=== PATIENT | female | born 1950 | race American Indian/Alaskan Native ===

== ENCOUNTER 2017-09-07 10:34 | Emergency (ER) | payer MEDICARE ==
[2017-09-07] MEDS ORDERED: CATAPRES PO ONE (11:31)
[2017-09-07] MEDS ORDERED: COZAAR PO ONE (11:31)
--- NOTE | 2017-09-07 11:33 | Emergency Department Report ---
Blank Doc - Documentation Documentation: Patient is 67 years old female sent from her primary care physician office after she found to have a blood pressure of 245/100. Patient stated that she did not have her Losartan for the last 2 days. She denied any headache, chest pain, shortness of breath, abdominal pain, weakness, numbness, tingling sensation, bowel or bladder incontinence. Patient is given clonidine 0.2 mg, losartan 50 mg. The patient needed to be observed until the blood pressure come down.
--- NOTE | 2017-09-07 11:58 | Emergency Department Report ---
HPI - General Chief Complaint: Medical Clearance Time Seen by Provider: 09/07/17 11:16 - HPI HPI: Patient is a 67-year-old female with a history of high blood pressure on medication who presents to ED from her primary care physician's office for elevated blood pressure. Patient states she did not take her blood pressure medication today she states she takes losartan 100 mg once a day for blood pressure. Patient denies any headache, blurred vision, chest pain, shortness of breath, abdominal pain or any other problems today. ED Past Medical Hx - Past Medical History Hx Hypertension: Yes Hx Diabetes: Yes - Surgical History Past Surgical History?: No - Social History Smoking Status: Current Every Day Smoker Substance Use Type: None - Medications Home Medications: Home Medications Medication Instructions Recorded Confirmed Last Taken Type HYDROcodone/APAP 5-325 [[place] 1 each PO Q6HR PRN #10 tablet 01/01/16 Unknown Rx 5/325] cloNIDine [Catapres] 0.1 mg PO BID #60 tablet 01/01/16 Unknown Rx Losartan [Cozaar] 100 mg PO QDAY #40 tablet 09/07/17 Unknown Rx ED Review of Systems ROS: Stated complaint: HYPERTENSIVE Other details as noted in HPI Constitutional: denies: chills, fever Eyes: denies: eye pain, eye discharge, vision change ENT: denies: ear pain, throat pain Respiratory: denies: cough, shortness of breath, wheezing Cardiovascular: denies: chest pain, palpitations Endocrine: no symptoms reported Gastrointestinal: denies: abdominal pain, nausea, diarrhea Genitourinary: denies: urgency, dysuria, discharge Musculoskeletal: denies: back pain, joint swelling, arthralgia Skin: denies: rash, lesions Neurological: denies: headache, weakness, paresthesias Psychiatric: denies: anxiety, depression Hematological/Lymphatic: denies: easy bleeding, easy bruising Physical Exam - Physical Exam Vital Signs: Vital Signs 09/07/17 09/07/17 10:45 11:41 Temperature 98 F Pulse Rate 75 82 Respiratory 16 Rate Blood Pressure 249/100 250/100 O2 Sat by Pulse 100 Oximetry Physical Exam: GENERAL: Alert and oriented x3, no apparent distress, Normal Gait, atraumatic. HEAD: Head is normocephalic and a-traumatic. EYES: Extra ocular muscles are intact. Pupils are equal, round, and reactive to light and accommodation. NECK: Supple. Non edematous, No carotid bruits. No lymphadenopathy or thyromegaly. No C-spine tenderness LUNGS: Symetrical with respiration, No wheezing, no rales or crackles, CTAB. HEART: S1, S2 present, regular rate and rhythm without murmur, no rubs, no gallops. Non tender to palpation ABDOMEN: No organomegaly was noted,Positive bowel sounds, soft, and non- distended. . Nontender to palpation on all Quadrants, NO CVA tenderness. EXTREMITIES/MUSCULOSKELETAL: No cyanosis, clubbing, rash, lesions or edema. Full ROM bilaterally. NEUROLOGIC: The patient is cooperative with no focal neurologic deficits. SKIN: Warm and dry, No lesions, No ulceration or induration present. ED Course Vital Signs 09/07/17 09/07/17 10:45 11:41 Temperature 98 F Pulse Rate 75 82 Respiratory 16 Rate Blood Pressure 249/100 250/100 O2 Sat by Pulse 100 Oximetry ED Medical Decision Making - Lab Data Result diagrams: 09/07/17 11:40 09/07/17 11:40 Last Vital Signs Temp 98.8 F 09/07/17 12:13 Pulse 78 09/07/17 13:11 Resp 18 09/07/17 13:13 BP 167/87 09/07/17 13:11 Pulse Ox 100 09/07/17 13:13 - Medical Decision Making 67-year-old female presents with hypertension urgency. ED course: Clonidine was given in ED to reduce blood pressure CBC, BMP and urinalysis ordered to rule out hypertensive emergency. Patient is stable, sitting in ED comfortably Discussed with patient to take her blood pressure medications daily. Discussed the patient will follow up with the primary care physician and discuss management of blood pressure medication Patient had no symptomatic elevated blood pressure in ED Patient labs within normal limits. Blood pressure reduced prior to discharge. Discussed patient if any new onset of symptoms to return to ED Critical care attestation.: If time is entered above; I have spent that time in minutes in the direct care of this critically ill patient, excluding procedure time. ED Disposition Clinical Impression: Hypertensive urgency, Uncontrolled hypertension Disposition: DC-01 TO HOME OR SELFCARE Is pt being admited?: No Does the pt Need Aspirin: No Condition: Stable Instructions: Chronic Hypertension (ED), Hypertension (ED) Additional Instructions: Make sure to follow up with the primary care physician as discussed. Take all your medications as you've been prescribed. If you have any worsening symptoms or develop new symptoms please return to ED immediately. Prescriptions: Losartan [Cozaar] 100 mg PO QDAY #40 tablet Referrals: PRIMARY CARE, [Primary Care Provider] - 3-5 Days MARTINA MILTON MD [Referring] - 3-5 Days [facility] [Outside] - 3-5 Days [facility] [Outside] - 3-5 Days [facility] [Outside] - 3-5 Days Forms: Work/School Release Form(ED)
[2017-09-07 12:13] LABS: Basophils # (Auto) 0.1 K/mm3 (0.0-0.1); Basophils % (Auto) 1.2 % (0.0-1.8); Eosinophils # (Auto) 0.2 K/mm3 (0.0-0.4); Eosinophils % (Auto) 3.8 % (0.0-4.3); Hematocrit 36.7 % (30.3-42.9); Hemoglobin 12.7 gm/dl (10.1-14.3); Lymphocytes # (Auto) 1.5 K/mm3 (1.2-5.4); Lymphocytes % (Auto) 31.4 % (13.4-35.0); Mean Corpuscular HGB Conc 35 % (30-34); Mean Corpuscular Hemoglobin 32 pg (28-32); Mean Corpuscular Volume 92 fl (79-97); Monocytes # (Auto) 0.3 K/mm3 (0.0-0.8); Monocytes % (Auto) 6.9 % (0.0-7.3); Platelet Count 200 K/mm3 (140-440); Red Blood Count 3.99 M/mm3 (3.65-5.03); Red Cell Distribution Width 14.7 % (13.2-15.2)
[2017-09-07 12:19] LABS: Albumin 4.4 g/dL (3.9-5); Calcium 9.4 mg/dL (8.4-10.2)
[2017-09-07 12:31] LABS: Mucus,Urine FEW /HPF
[2017-09-07 12:37] LABS: Bilirubin,Urine NEG (Negative); Blood,Urine NEG (Negative); Color,Urine Straw (Yellow); Urobilinogen,Urine < 2.0 mg/dL (<2.0)
[2017-09-07 13:12] VITALS: BP 167/87
== END 2017-09-07 13:20 | disposition home or self-care (01) ==
LOC: ED 10:34
DX: I10 Essential (primary) hypertension (principal); I16.0 Hypertensive urgency; E11.9 Type 2 diabetes mellitus without complications; F17.200 Nicotine dependence, unspecified, uncomplicated
CPT/HCPCS: 36415; 80053; 81001; 85025; 93005; 93010; 99283

== ENCOUNTER 2021-09-14 12:54 | Inpatient (IN) | payer MEDICARE ==
[2021-09-14 14:51] LABS: Basophils % (Auto) 0.7 % (0.0-1.8); Eosinophils % (Auto) 0.9 % (0.0-4.3); Hematocrit 20.6 % (30.3-42.9); Hemoglobin 6.7 gm/dl (10.1-14.3); Lymphocytes # (Auto) 0.8 K/mm3 (1.2-5.4); Lymphocytes % (Auto) 18.1 % (13.4-35.0); Mean Corpuscular HGB Conc 33 % (30-34); Mean Corpuscular Volume 93 fl (79-97); Monocytes # (Auto) 0.2 K/mm3 (0.0-0.8); Monocytes % (Auto) 5.1 % (0.0-7.3); Platelet Count 255 K/mm3 (140-440); Red Blood Count 2.22 M/mm3 (3.65-5.03)
[2021-09-14 15:09] LABS: Alanine Aminotransferase 8 units/L (7-56); Albumin 3.4 g/dL (3.9-5); BUN/Creatinine Ratio 18; Blood Urea Nitrogen 57 mg/dL (7-17); Calcium 8.5 mg/dL (8.4-10.2); Hemolysis Index 0
[2021-09-14] MEDS ORDERED: SODIUM CHLORIDE 0.9% 1000 ML 1,000 ML IV ONE (15:12)
[2021-09-14] MEDS ORDERED: SODIUM POLYSTYRENE 15 GM/60 ML ORAL LIQD PR ONE (15:30)
[2021-09-14] MEDS ORDERED: SODIUM BICARB 8.4% 50 MEQ/50 ML SYRINGE IV ONE (15:30)
[2021-09-14] MEDS ORDERED: DEXTROSE 50% IN WATER (25GM) 50 ML SYRINGE IV ONE (15:30)
[2021-09-14] MEDS ORDERED: FUROSEMIDE 40 MG/4 ML INJ IV ONE (15:30)
[2021-09-14] MEDS ORDERED: INSULIN REGULAR, HUMAN 100 UNITS/1 ML IV ONE (15:31)
[2021-09-14] MEDS ORDERED: ALBUTEROL 2.5 MG/3 ML NEBU IH ONE (15:31)
--- NOTE | 2021-09-14 15:43 | Emergency Department Report ---
ED Dizziness HPI - General Chief Complaint: Dizziness Stated Complaint: DIZZY Time Seen by Provider: 09/14/21 15:20 Source: patient Mode of arrival: Ambulatory Limitations: No Limitations - History of Present Illness Initial Comments: 71-year-old female the past medical history of hypertension, diabetes, and renal sufficiency presents to the hospital complaining of lightheadedness since last night. Symptoms worsened this morning and patient felt too weak to walk unassisted. Mild shortness of breath on exertion reported. Patient denies any pain. She denies nausea, vomiting, fever, melena hematochezia, or hematemesis. Decreased appetite reported. Patient's PMD Dr. Corona and she has a rn long term care on [facility] but cannot recall the name at this time - Related Data Previous Rx's Medication Instructions Recorded Last Taken Type HYDROcodone/APAP 5-325 [[place] 1 each PO Q6HR PRN #10 tablet 01/01/16 Unknown Rx 5/325] cloNIDine [Catapres] 0.1 mg PO BID #60 tablet 01/01/16 Unknown Rx Losartan [Cozaar] 100 mg PO QDAY #40 tablet 09/07/17 Unknown Rx Allergies Allergy/AdvReac Type Severity Reaction Status Date / Time No Known Allergies Allergy Unverified 05/23/13 14:39 ED Review of Systems ROS: Stated complaint: DIZZY Other details as noted in HPI Comment: All other systems reviewed and negative ED Past Medical Hx - Past Medical History Hx Hypertension: Yes Hx Diabetes: Yes - Social History Smoking Status: Current Every Day Smoker Substance Use Type: None - Medications Home Medications: Home Medications Medication Instructions Recorded Confirmed Last Taken Type HYDROcodone/APAP 5-325 [[place] 1 each PO Q6HR PRN #10 tablet 01/01/16 Unknown Rx 5/325] cloNIDine [Catapres] 0.1 mg PO BID #60 tablet 01/01/16 Unknown Rx Losartan [Cozaar] 100 mg PO QDAY #40 tablet 09/07/17 Unknown Rx ED Physical Exam - General Limitations: No Limitations - Other Other exam information: General: No acute distress Head: Atraumatic Eyes: normal appearance ENT: Moist mucous membranes Neck: Normal appearance, no midline tenderness Chest: Clear to auscultation bilaterally CV: Regular rate and rhythm Abdomen: Soft, normal bowel sounds, nontender, nondistended, no rebound or guarding Rectal: Brown stool no melena or hematochezia Back: Normal inspection Extremity: Normal inspection, full range of motion Neuro: Alert O x 3, no facial asymmetry, speech clear, no gross motor sensory deficit Psych: Appropriate behavior Skin: No rash ED Course Vital Signs 09/14/21 09/14/21 09/14/21 13:07 16:51 16:55 Temperature 98.9 F Pulse Rate 99 H Pulse Rate [ 120 H Bilateral Throughout] Respiratory 18 Rate Respiratory 18 Rate [Bilateral Throughout] Blood Pressure Blood Pressure 139/60 [Left] O2 Sat by Pulse 95 94 Oximetry 09/14/21 09/14/21 09/14/21 19:31 19:46 20:46 Temperature 98.9 F 97.9 F 98.1 F Pulse Rate 118 H 116 H 112 H Pulse Rate [ Bilateral Throughout] Respiratory 22 22 22 Rate Respiratory Rate [Bilateral Throughout] Blood Pressure 148/78 159/77 153/82 Blood Pressure [Left] O2 Sat by Pulse 100 99 100 Oximetry - Consultations Consultation #1: 09/14/21 15:[address] Serrano her rn long term care, He is familiar with the patient states baseline cr 2 ED Medical Decision Making - Lab Data Result diagrams: 09/14/21 14:20 09/14/21 14:20 Lab Results 09/14/21 09/14/21 Range/Units 14:20 14:20 WBC 4.3 L (4.5-11.0) K/mm3 RBC 2.22 L (3.65-5.03) M/mm3 Hgb 6.7 L (10.1-14.3) gm/dl Hct 20.6 L (30.3-42.9) % MCV 93 (79-97) fl MCH 30 (28-32) pg MCHC 33 (30-34) % RDW 14.0 (13.2-15.2) % Plt Count 255 (140-440) K/mm3 Lymph % (Auto) 18.1 (13.4-35.0) % [place] % (Auto) 5.1 (0.0-7.3) % Eos % (Auto) 0.9 (0.0-4.3) % Baso % (Auto) 0.7 (0.0-1.8) % Lymph # (Auto) 0.8 L (1.2-5.4) K/mm3 [place] # (Auto) 0.2 (0.0-0.8) K/mm3 Eos # (Auto) 0.0 (0.0-0.4) K/mm3 Baso # (Auto) 0.0 (0.0-0.1) K/mm3 Seg Neutrophils % 75.2 H (40.0-70.0) % Seg Neutrophils # 3.3 (1.8-7.7) K/mm3 Sodium 132 L (137-145) mmol/L Potassium 6.1 H* (3.6-5.0) mmol/L Chloride 97.6 L (98-107) mmol/L Carbon Dioxide 20 L (22-30) mmol/L Anion Gap 21 mmol/L BUN 57 H (7-17) mg/dL Creatinine 3.2 H (0.6-1.2) mg/dL Estimated GFR 17 ml/min BUN/Creatinine Ratio 18 % Glucose 125 H (65-100) mg/dL Calcium 8.5 (8.4-10.2) mg/dL Total Bilirubin 0.30 (0.1-1.2) mg/dL AST 11 (5-40) units/L ALT 8 (7-56) units/L Alkaline Phosphatase 73 (35-129) units/L Troponin T < 0.010 (0.00-0.029) ng/mL Total Protein 8.2 (6.3-8.2) g/dL Albumin 3.4 L (3.9-5) g/dL Albumin/Globulin Ratio 0.7 % - EKG Data -: EKG Interpreted by Ut EKG shows normal: sinus rhythm, ST-T waves (no stemi) Rate: normal (97) - Radiology Data Radiology results: report reviewed CHEST 1 VIEW 09/14/2021 3:39 PM INDICATION / CLINICAL INFORMATION: sob, anemia, renal insufficiency. COMPARISON: 05/24/2013 FINDINGS: SUPPORT DEVICES: None. HEART / MEDIASTINUM: No significant abnormality. LUNGS / PLEURA: Bilateral mild interstitial opacities. No focal airspace disea se. No pneumothorax. ADDITIONAL FINDINGS: No significant additional findings. IMPRESSION: 1. Bilateral mild interstitial opacities favoring mild interstitial pulmonary edema versus small airways disease. - Medical Decision Making 71-year-old female presents to the hospital complaining of generalized weakness and lightheadedness. ED work-up reveals symptomatic anemia, acute on chronic renal sufficiency, and hyperkalemia. Case discussed with her rn long term care who reports a baseline creatinine of 2 which has worsened today. Today labs reveal stage IV kidney disease as opposed to previous history of stage IIIb kidney disease. Patient provided medications for hyperkalemia and 1 unit of PRBCs ordered. Hospitalist Dr. Fofana to place admission order Chest x-ray shows CHF. Patient initially received IV fluids as ordered by initial nurse practitioner. Patient has received Lasix. I informed nurse to inform admitting physician - Differential Diagnosis Anemia, dehydration, arrhythmia Critical Care Time: No Critical care attestation.: If time is entered above; I have spent that time in minutes in the direct care of this critically ill patient, excluding procedure time. ED Disposition Clinical Impression: Hyperkalemia, Weakness, [id number] renal failure, Symptomatic anemia, Pulmonary edema Disposition: ADMITTED INPATIENT Is pt being admited?: Yes Condition: Stable Time of Disposition: 15:52
[2021-09-14] MEDS ORDERED: SODIUM CHLORIDE 0.9% 500 ML 500 ML IV ONE ×2 (15:45→15:57)
--- NOTE | 2021-09-14 15:53 | History and Physical Report ---
History of Present Illness Chief complaint: I feel weak, I get dizzy and I passed out History of present illness: 71 YO Female with Vascular Dementia, Cerebral Atherosclerosis, HTN, DM, CKD, Nicotine Dependence presents to ED for evaluation. Patient reports "I feel weak, I get dizzy, and then I passed out". Patient states that she experienced generalized weakness over the past 1 week with persistent symptoms over the same timeframe. Patient also states that she experienced a sudden onset of dizziness while ambulating in her home last night and felt unable to walk and sat down and subsequently passed out. Patient awoke from sleep this a.m. with persistent weakness and dizziness. Patient transported to [facility] via private vehicle for further care and evaluation of the aforementioned symptoms. The patient was seen and evaluated in the emergency department. All lab and imaging studies reviewed. Patient found to have symptomatic anemia resulting in generalized weakness and loss of consciousness, BROCK with ATN, metabolic acidosis. Patient admitted to medical floor due to increased risk of worsening symptoms. Nephrology team consulted in ED. Patient denies fever, chills, chest pain, palpitation, productive cough, skin rash, recent contact, ingestion of food/water from new or different sources, bright red blood per rectum, melena, hematemesis, or known exposure to COVID-19. No prior admission for review. All medication listed at time of admission labs reconciled. Advanced care planning conducted in ED. Past History Past Medical History: diabetes, hypertension, renal failure, other (See HPI) Past Surgical History: No surgical history, Other (Reviewed) Social history: smoking Family history: diabetes, hypertension Medications and Allergies Allergies Allergy/AdvReac Type Severity Reaction Status Date / Time No Known Allergies Allergy Unverified 05/23/13 14:39 Home Medications Medication Instructions Recorded Confirmed Last Taken Type HYDROcodone/APAP 5-325 [[place] 1 each PO Q6HR PRN #10 tablet 01/01/16 Unknown Rx 5/325] cloNIDine [Catapres] 0.1 mg PO BID #60 tablet 01/01/16 Unknown Rx Losartan [Cozaar] 100 mg PO QDAY #40 tablet 09/07/17 Unknown Rx Active Meds: Active Medications Sodium Chloride (Nacl 0.9% 1000 Ml) 1,000 mls @ 999 mls/hr IV BOLUS ONE Stop: 09/14/21 16:12 Calcium Gluconate 1,000 mg/ (Sodium Chloride) 110 mls @ 660 mls/hr IV ONCE ONE Stop: 09/14/21 16:39 Review of Systems Constitutional: fatigue, weakness, no weight loss, no weight gain, no fever, no chills Ears, nose, mouth and throat: no ear pain, no tinnitis, no nose pain Breasts: no change in shape, no swelling, no mass Cardiovascular: no chest pain, no rapid/irregular heart beat, no edema, no syncope Respiratory: no cough, no cough with sputum, no hemoptysis, no shortness of breath Gastrointestinal: no abdominal pain, no diarrhea, no constipation, no change in bowel habits, no coffee ground emesis Genitourinary Female: no pelvic pain, no flank pain, no dysuria, no urinary frequency, no urgency Rectal: no pain, no incontinence, no bleeding Musculoskeletal: no neck stiffness, no shooting arm pain, no arm n umbness/tingling Integumentary: no rash, no pruritis, no redness, no sores, no wounds, no jaundice, no boils Neurological: no transient paralysis, no paralysis, no parathesias, no numbness, no tingling, no seizures, no tremors Psychiatric: no anxiety, no memory loss, no sleep disturbances, no hypersomnia, no change in appetite, no suicidal ideation Endocrine: no cold intolerance, no heat intolerance, no polydipsia, no polyuria, no excessive sweating, no flushing Hematologic/Lymphatic: no easy bruising, no lymphedema Allergic/Immunologic: no allergic rhinitis, no wheezing, no anaphylaxis, no angioedema Exam - Constitutional Vitals: Temp Pulse Resp BP Pulse Ox 98.9 F 99 H 18 139/60 95 09/14/21 13:07 09/14/21 13:07 09/14/21 13:07 09/14/21 13:07 09/14/21 13:07 General appearance: Present: mild distress - EENT Eyes: Present: PERRL (Conjunctival pallor) ENT: hearing intact, clear oral mucosa - Neck Neck: Present: supple, normal ROM - Respiratory Respiratory effort: normal Respiratory: bilateral: CTA - Cardiovascular Heart Sounds: Present: S1 & S2. Absent: rub, click - Extremities Extremities: pulses symmetrical, No edema Peripheral Pulses: within normal limits - Abdominal General gastrointestinal: Present: soft, non-tender, non-distended, normal bowel sounds Female genitourinary: Present: normal - Integumentary Integumentary: Present: dry, clammy, decreased turgor - Musculoskeletal Musculoskeletal: generalized weakness - Psychiatric Psychiatric: appropriate mood/affect, intact judgment & insight - Neurologic Neurologic: CNII-XII intact, no focal deficits, moves all extremities, no gait normal HEART Score - HEART Score Troponin: Troponin T < 0.010 ng/mL (0.00-0.029) 09/14/21 14:20 Results - Labs CBC & Chem 7: 09/14/21 14:20 09/14/21 14:20 Labs: Abnormal lab results 09/14/21 09/14/21 Range/Units 14:20 14:20 WBC 4.3 L (4.5-11.0) K/mm3 RBC 2.22 L (3.65-5.03) M/mm3 Hgb 6.7 L (10.1-14.3) gm/dl Hct 20.6 L (30.3-42.9) % Lymph # (Auto) 0.8 L (1.2-5.4) K/mm3 Seg Neutrophils % 75.2 H (40.0-70.0) % Sodium 132 L (137-145) mmol/L Potassium 6.1 H* (3.6-5.0) mmol/L Chloride 97.6 L (98-107) mmol/L Carbon Dioxide 20 L (22-30) mmol/L BUN 57 H (7-17) mg/dL Creatinine 3.2 H (0.6-1.2) mg/dL Glucose 125 H (65-100) mg/dL Albumin 3.4 L (3.9-5) g/dL Assessment and Plan - Patient Problems (1) Symptomatic anemia Current Visit: No Status: Acute Plan to address problem: Packed red blood cell transfusion, CBC, repeat CBC in a.m., Lasix 20 mg IV after transfusion of first unit of packed red blood cells, Tylenol, (2) Acute kidney injury (BROCK) with acute tubular necrosis (ATN) Current Visit: Yes Status: Acute Plan to address problem: Nephrology team consulted in ED, monitor fluid balance, strict I's/O, daily weight, BMP, repeat BMP in a.m. avoid nephrotoxic agents. (3) Metabolic acidosis Current Visit: Yes Status: Acute Plan to address problem: BMP, IV fluid resuscitation therapy as clinically indicated, repeat BMP in a.m. (4) Vascular dementia Current Visit: Yes Status: Acute Qualifiers: Dementia behavioral disturbance: without behavioral disturbance Qualified Code(s): F01.50 - Vascular dementia without behavioral disturbance Plan to address problem: Verbal prompting, verbal redirection, benzodiazepine therapy as clinically indicated. (5) Cerebral atherosclerosis Current Visit: Yes Status: Acute Plan to address problem: Risk factor reduction therapy, antiplatelet therapy as clinically indicated. (6) Hypertension Current Visit: Yes Status: Acute Qualifiers: Hypertension type: primary hypertension Qualified Code(s): I10 - Essential (primary) hypertension Plan to address problem: Monitor blood pressure every shift, continue medical management. (7) Diabetes Current Visit: Yes Status: Acute Plan to address problem: Consistent carbohydrate diet, Accu-Chek, hypoglycemia protocol, insulin protocol. (8) Nicotine dependence Current Visit: Yes Status: Acute Plan to address problem: Smoking cessation counseling, supportive care, behavior change counseling, +15 minutes. (9) DVT prophylaxis Current Visit: Yes Status: Acute Plan to address problem: SCD to bilateral lower extremities while in bed (10) Advance care planning Current Visit: Yes Status: Acute (11) Preventative health care Current Visit: Yes Status: Acute Plan to address problem: Patient counseled regarding risk factor reduction, medication compliance as well as smoking cessation. +15 minutes.
[2021-09-14] MEDS ORDERED: ALBUTEROL 2.5 MG/3 ML NEBU IH PRN (15:54)
[2021-09-14] MEDS ORDERED: oxyCODONE /ACETAMINOPHEN 5-325MG TAB PO PRN (15:54)
[2021-09-14] MEDS ORDERED: ONDANSETRON 4 MG/2 ML INJ IV PRN (15:54)
[2021-09-14] MEDS ORDERED: HYDROmorphone 1 MG/1 ML INJ IV PRN (15:54)
[2021-09-14] MEDS ORDERED: ACETAMINOPHEN 325 MG TAB PO PRN (15:54)
--- NOTE | 2021-09-14 15:57 | XRay Report ---
CHEST 1 VIEW 09/14/2021 3:39 PM INDICATION / CLINICAL INFORMATION: sob, anemia, renal insufficiency. COMPARISON: 05/24/2013 FINDINGS: SUPPORT DEVICES: None. HEART / MEDIASTINUM: No significant abnormality. LUNGS / PLEURA: Bilateral mild interstitial opacities. No focal airspace disease. No pneumothorax. ADDITIONAL FINDINGS: No significant additional findings. IMPRESSION: 1. Bilateral mild interstitial opacities favoring mild interstitial pulmonary edema versus small airw ays disease. Signer Name: Jose L Brothers MD Signed: 09/14/2021 3:53 PM Workstation Name: [id number]
[2021-09-14] MEDS ORDERED: SODIUM CHLORIDE 0.45% 1000 ML 1,000 ML IV SCH (16:00)
[2021-09-14] MEDS ORDERED: CALC GLUCONATE 1GM/NS 100 ML 1 GM/100 ML BAG IV ONE (16:30)
[2021-09-14] MEDS ORDERED: CALCIUM GLUCONATE 1,000 MG in SODIUM CHLORIDE 0.9% 100 ML IV ONE (16:30)
[2021-09-14 17:54] LABS: INR 1.21 (0.87-1.13)
[2021-09-14 17:55] LABS: Partial Thromboplastin Time 53.6 Sec. (24.2-36.6)
[2021-09-14] MEDS ORDERED: SODIUM CHLORIDE 0.9% 500 ML 500 ML ONE (22:40)
--- NOTE | 2021-09-15 10:05 | Consultation ---
History of Present Illness - Reason for Consult Consult date: 09/15/21 acute renal failure (71yr F admitted c/o Generalized weakness & failure to thrive. W/u on admission revealed HyperK, elevated BUN/Cr & Anemia.), hyper kalemia Past History Past Medical History: diabetes, hypertension, renal failure (Pt denies h/o prior renal problems but notes indicate pt has CKD with baseline Creatinine 2 & f/u by Mohs Surgeon, Dr. Serrano), other Past Surgical History: No surgical history, Other (Reviewed) Social history: smoking Family history: diabetes, hypertension Medications and Allergies Allergies Allergy/AdvReac Type Severity Reaction Status Date / Time No Known Allergies Allergy Unverified 05/23/13 14:39 Home Medications Medication Instructions Recorded Confirmed Last Taken Type Aspirin [Adult Aspirin] 81 mg PO DAILY 09/15/21 09/15/21 Unknown History Ezetimibe [Zetia] 10 mg PO DAILY 09/15/21 09/15/21 Unknown History Ferrous Sulfate [Iron 325 MG] 325 mg PO BID 09/15/21 09/15/21 Unknown History Gabapentin 100 mg PO BID PRN 09/15/21 09/15/21 Unknown History Metoprolol SUCCINATE ER TAB 100 mg PO DAILY 09/15/21 09/15/21 Unknown History Mirtazapine 7.5 mg PO QHS 09/15/21 09/15/21 Unknown History NIFEdipine [Nifedipine] 60 mg PO BID 09/15/21 09/15/21 Unknown History hydrALAZINE [Apresoline TAB] 100 mg PO TID 09/15/21 09/15/21 Unknown History lisinopriL [Lisinopril] 10 mg PO DAILY 09/15/21 09/15/21 Unknown History Active Meds: Active Medications Acetaminophen (Acetaminophen 325 Mg Tab) 650 mg PO Q4H PRN PRN Reason: Pain MILD(1-3)/Fever >100.5/HOLGUIN Albuterol (Albuterol 2.5 Mg/3 Ml Nebu) 2.5 mg IH Q4HRT PRN PRN Reason: Shortness Of Breath Hydromorphone HCl (Hydromorphone 1 Mg/1 Ml Inj) 0.5 mg IV Q13H PRN PRN Reason: Pain , Severe (7-10) Sodium Chloride (Nacl 0.45% 1000 Ml) 1,000 mls @ 42 mls/hr IV DIRECT [facility] Ondansetron HCl (Ondansetron 4 Mg/2 Ml Inj) 4 mg IV Q8H PRN PRN Reason: Nausea And Vomiting Oxycodone/Acetaminophen (Oxycodone /Acetaminophen 5-325mg Tab) 1 tab PO Q16H PRN PRN Reason: Pain, Moderate (4-6) Sodium Chloride (Sodium Chloride 0.9% 10 Ml Flush Syringe) 10 ml IV BID [facility] Last Admin: 09/15/21 09:40 Dose: Not Given Sodium Chloride (Sodium Chloride 0.9% 10 Ml Flush Syringe) 10 ml IV PRN PRN PRN Reason: LINE FLUSH Review of Systems Constitutional: fatigue, weakness, no fever, no chills Cardiovascular: lightheadedness, no chest pain, no orthopnea, no palpitations, no leg edema Respiratory: no cough, no shortness of breath, no congestion Gastrointestinal: no abdominal pain, no nausea, no vomiting, no diarrhea Musculoskeletal: no neck stiffness Integumentary: no rash Exam - Vital Signs Vital signs: Vital Signs Temp Pulse Resp BP Pulse Ox 98.9 F 99 H 18 139/60 95 09/14/21 13:07 09/14/21 13:07 09/14/21 13:07 09/14/21 13:07 09/14/21 13:07 - General Appearance General appearance: other (Awake & verbally responsive but weak) EENT: PERRL Neck: Present: neck supple. Absent: JVD/HJR Respiratory: Other (Good air entry) Heart: regular, S1S2, other (No edema) Gastrointestinal: Present: normal, other (Soft). Absent: tenderness Integumentary: no rash Neurologic: other (Moves all limbs) Results - Lab Results 09/14/21 14:20 09/14/21 14:20 Most recent lab results Calcium 8.5 mg/dL (8.4-10.2) 09/14/21 14:20 Assessment and Plan BROCK - Likely prerenal azotemia 2/2 Dehydration & possibly meds (outpt meds unknown at this time) ?Acute on CKD - Notes indicate baseline Cr 2. CKD currently Stage4 with eGFR 17 Electrolyte Abnormality - HyperK, HypoNa, mild Acidosis Anemia - ?Of chronic renal dz but r/o Blood loss H/o HTN/DM -On meds Plan: Spot Urine - UA/Micro, FENA, UUN, Prot/Cr ratio Renal u/s - Pending. Review when done Agree with cautious IVF with NS, avoid further diuretics. Repeat CXR 2views in am to confirm no Pulm Congestion Kayexalate & f/u labs Anemia w/u including Stool guaiacs, PRBC transfusion & f/u H/H Review meds & adjust as necessary, avoiding nephrotoxic meds Thanks very much, will f/u with you
[2021-09-15 10:36] LABS: Basophils % (Auto) 0.6 % (0.0-1.8); Eosinophils % (Auto) 0.4 % (0.0-4.3); Hematocrit 29.2 % (30.3-42.9); Hemoglobin 9.9 gm/dl (10.1-14.3); Lymphocytes # (Auto) 0.7 K/mm3 (1.2-5.4); Lymphocytes % (Auto) 11.4 % (13.4-35.0); Mean Corpuscular HGB Conc 34 % (30-34); Mean Corpuscular Volume 88 fl (79-97); Monocytes # (Auto) 0.3 K/mm3 (0.0-0.8); Monocytes % (Auto) 4.6 % (0.0-7.3); Platelet Count 214 K/mm3 (140-440); Red Blood Count 3.32 M/mm3 (3.65-5.03); Red Cell Distribution Width 15.2 % (13.2-15.2)
[2021-09-15 10:37] LABS: Hemoglobin 9.8 gm/dl (10.1-14.3)
[2021-09-15] MEDS ORDERED: SODIUM POLYSTYRENE 15 GM/60 ML ORAL LIQD PO SCH (11:00)
--- NOTE | 2021-09-15 11:13 | Ultrasound Report ---
Renal ultrasound INDICATION: Acute renal failure FINDINGS: Both kidneys measure 9 cm in length and are echogenic. There is mild thinning of both renal cortices measuring about 9 mm in thickness. The urinary bladder is fluid distended. Focal calculus i dentified within the left mid kidney IMPRESSION: No hydronephrosis. Medical renal disease. Signer Name: Yfn Baez MD Signed: 09/15/2021 11:09 AM Workstation Name: [employer]
--- NOTE | 2021-09-15 11:57 | Progress Note ---
Assessment and Plan Assessment and plan: 71 YO Female with Vascular Dementia, Cerebral Atherosclerosis, HTN, DM, CKD, Nicotine Dependence presents to ED for evaluation of generalized weakness over the past 1 week with persistent symptoms over the same timeframe. Patient also states that she experienced a sudden onset of dizziness while ambulating in her home the night [employer]ELOP[employer] and felt unable to walk and sat down and subsequently passed out. Patient now report persistent weakness and dizziness. Patient transported to [facility] via private vehicle for further care and evaluation. All lab and imaging studies reviewed. Patient found to have symptomatic anemia resulting in generalized weakness and loss of consciousness, BROCK with ATN, metabolic a cidosis. Patient admitted to medical floor due to increased risk of worsening symptoms. Nephrology team consulted in ED. Symptomatic anemia Acute kidney injury secondary to vasomotor nephropathy Vascular dementia Cerebral atherosclerosis Hypertension Diabetes mellitus type 2 Tobacco abuse 09/15/2021. Patient with a baseline creatinine of 1.2 in August 2017. Patient's hemoglobin has improved to 9.8 after 2 units of PRBCs. Continue to monitor H&H. No evidence of active bleeding, no hematochezia or hematemesis. Follow-up Hemoccult of stool. Follow-up iron studies. Follow-up spot urine, urinalysis and renal ultrasound. History Interval history: No new issues overnight Hospitalist Physical - Constitutional Vitals: Temp Pulse Resp BP Pulse Ox 98.9 F 111 H 20 167/86 99 09/15/21 09:05 09/15/21 09:05 09/15/21 09:05 09/15/21 06:00 09/15/21 09:05 General appearance: Present: mild distress - EENT Eyes: Present: PERRL, EOM intact ENT: hearing intact, clear oral mucosa, dentition normal - Neck Neck: Present: supple, normal ROM - Respiratory Respiratory effort: normal Respiratory: bilateral: CTA - Cardiovascular Rhythm: regular Heart Sounds: Present: S1 & S2. Absent: gallop, rub - Extremities Extremities: no ischemia, No edema, Full ROM - Abdominal General gastrointestinal: soft, non-tender, non-distended, normal bowel sounds - Integumentary Integumentary: Present: clear, warm, dry - Neurologic Neurologic: CNII-XII intact, moves all extremities HEART Score - HEART Score Troponin: Troponin T < 0.010 ng/mL (0.00-0.029) 09/14/21 14:20 Results - Labs CBC & Chem 7: 09/15/21 10:07 09/14/21 14:20 Labs: Laboratory Last Values WBC 6.5 K/mm3 (4.5-11.0) 09/15/21 10:07 RBC 3.32 M/mm3 (3.65-5.03) L 09/15/21 10:07 Hgb 9.8 gm/dl (10.1-14.3) L 09/15/21 10:07 Hgb 9.9 gm/dl (10.1-14.3) L D 09/15/21 10:07 Hct 28.0 % (30.3-42.9) L 09/15/21 10:07 Hct 29.2 % (30.3-42.9) L D 09/15/21 10:07 MCV 88 fl (79-97) 09/15/21 10:07 MCH 30 pg (28-32) 09/15/21 10:07 MCHC 34 % (30-34) 09/15/21 10:07 RDW 15.2 % (13.2-15.2) 09/15/21 10:07 Plt Count 214 K/mm3 (140-440) 09/15/21 10:07 Lymph % (Auto) 11.4 % (13.4-35.0) L 09/15/21 10:07 [place] % (Auto) 4.6 % (0.0-7.3) 09/15/21 10:07 Eos % (Auto) 0.4 % (0.0-4.3) 09/15/21 10:07 Baso % (Auto) 0.6 % (0.0-1.8) 09/15/21 10:07 Lymph # (Auto) 0.7 K/mm3 (1.2-5.4) L 09/15/21 10:07 [place] # (Auto) 0.3 K/mm3 (0.0-0.8) 09/15/21 10:07 Eos # (Auto) 0.0 K/mm3 (0.0-0.4) 09/15/21 10:07 Baso # (Auto) 0.0 K/mm3 (0.0-0.1) 09/15/21 10:07 Seg Neutrophils % 83.0 % (40.0-70.0) H 09/15/21 10:07 Seg Neutrophils # 5.4 K/mm3 (1.8-7.7) 09/15/21 10:07 PT 16.7 Sec. (12.2-14.9) H 09/14/21 15:23 INR 1.21 (0.87-1.13) H 09/14/21 15:23 APTT 53.6 Sec. (24.2-36.6) H 09/14/21 15:23 Sodium 132 mmol/L (137-145) L 09/14/21 14:20 Potassium 6.1 mmol/L (3.6-5.0) H* 09/14/21 14:20 Chloride 97.6 mmol/L (98-107) L 09/14/21 14:20 Carbon Dioxide 20 mmol/L (22-30) L 09/14/21 14:20 Anion Gap 21 mmol/L 09/14/21 14:20 BUN 57 mg/dL (7-17) H 09/14/21 14:20 Creatinine 3.2 mg/dL (0.6-1.2) H 09/14/21 14:20 Estimated GFR 17 ml/min 09/14/21 14:20 BUN/Creatinine Ratio 18 % 09/14/21 14:20 Glucose 125 mg/dL (65-100) H 09/14/21 14:20 POC Glucose 105 mg/dL (70-105) 09/14/21 15:51 Calcium 8.5 mg/dL (8.4-10.2) 09/14/21 14:20 Total Bilirubin 0.30 mg/dL (0.1-1.2) 09/14/21 14:20 AST 11 units/L (5-40) 09/14/21 14:20 ALT 8 units/L (7-56) 09/14/21 14:20 Alkaline Phosphatase 73 units/L (35-129) 09/14/21 14:20 Troponin T < 0.010 ng/mL (0.00-0.029) 09/14/21 14:20 Total Protein 8.2 g/dL (6.3-8.2) 09/14/21 14:20 Albumin 3.4 g/dL (3.9-5) L 09/14/21 14:20 Albumin/Globulin Ratio 0.7 % 09/14/21 14:20 Blood Type A POSITIVE 09/14/21 15:23 Antibody Screen Negative 09/14/21 15:23 Crossmatch See Detail 09/14/21 15:23 Microbiology: Microbiology 09/14/21 14:37 Stool Stool Occult Blood (ANNA MARIE) - Final Active Medications - Current Medications Current Medications: Generic Name Dose Route Start Last Admin Trade Name Freq PRN Reason Stop Dose Admin Acetaminophen 650 mg 09/14/21 15:54 Acetaminophen 325 Mg Tab PO Q4H PRN Pain MILD(1-3)/Fever >100.5/HOLGUIN Albuterol 2.5 mg 09/14/21 15:54 Albuterol 2.5 Mg/3 Ml Nebu IH Q4HRT PRN Shortness Of Breath Hydromorphone HCl 0.5 mg 09/14/21 15:54 Hydromorphone 1 Mg/1 Ml Inj IV Q13H PRN Pain , Severe (7-10) Sodium Chloride 1,000 mls @ 42 mls/hr 09/14/21 16:00 Nacl 0.45% 1000 Ml IV DIRECT [facility] Ondansetron HCl 4 mg 09/14/21 15:54 Ondansetron 4 Mg/2 Ml Inj IV Q8H PRN Nausea And Vomiting Oxycodone/Acetaminophen 1 tab 09/14/21 15:54 Oxycodone /Acetaminophen 5-325mg Tab PO Q16H PRN Pain, Moderate (4-6) Sodium Chloride 10 ml 09/14/21 22:00 09/15/21 09:40 Sodium Chloride 0.9% 10 Ml Flush Syringe IV Not Given BID [facility] Sodium Chloride 10 ml 09/14/21 15:54 Sodium Chloride 0.9% 10 Ml Flush Syringe IV PRN PRN LINE FLUSH Sodium Polystyrene Sulfonate 30 gm 09/15/21 11:00 Sodium Polystyrene 15 Gm/60 Ml Oral Liqd PO 09/15/21 14:00 ONCE@1100 [facility]
[2021-09-16 06:34] LABS: Basophils % (Auto) 0.4 % (0.0-1.8); Eosinophils % (Auto) 0.3 % (0.0-4.3); Hematocrit 27.8 % (30.3-42.9); Hemoglobin 9.3 gm/dl (10.1-14.3); Mean Corpuscular HGB Conc 34 % (30-34); Mean Corpuscular Volume 89 fl (79-97); Monocytes # (Auto) 0.2 K/mm3 (0.0-0.8); Monocytes % (Auto) 4.7 % (0.0-7.3); Platelet Count 193 K/mm3 (140-440); Red Blood Count 3.13 M/mm3 (3.65-5.03); Red Cell Distribution Width 15.3 % (13.2-15.2)
[2021-09-16 06:53] LABS: Albumin 2.9 g/dL (3.9-5); Calcium 8.6 mg/dL (8.4-10.2)
--- NOTE | 2021-09-16 09:42 | Progress Note ---
Assessment and Plan Assessment and plan: 71 YO Female with Vascular Dementia, Cerebral Atherosclerosis, HTN, DM, CKD, Nicotine Dependence presents to ED for evaluation of generalized weakness over the past 1 week with persistent symptoms over the same timeframe. 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 Patient now report persistent weakness and dizziness. Patient transported to [facility] via private vehicle for further care and evaluation. All lab and imaging studies reviewed. Patient found to have symptomatic anemia resulting in generalized weakness and loss of consciousness, BROCK with ATN, metabolic a cidosis. Patient admitted to medical floor due to increased risk of worsening symptoms. Nephrology team consulted in ED. Symptomatic anemia Acute kidney injury secondary to vasomotor nephropathy Hyperkalemia Syncope Vascular dementia Cerebral atherosclerosis Hypertension Diabetes mellitus type 2 Tobacco abuse 09/15/2021. Patient with a baseline creatinine of 1.2 in August 2017. Patient's hemoglobin has improved to 9.8 after 2 units of PRBCs. Continue to monitor H&H. No evidence of active bleeding, no hematochezia or hematemesis. Follow-up Hemoccult of stool. Follow-up iron studies. Follow-up spot urine, urinalysis and renal ultrasound. 09/16/2021. Renal ultrasound reveals medical renal disease but no hydronephrosis. Creatinine has improved to 2.5. Hyperkalemia has resolved. Check carotid ultrasound and echocardiogram for syncope. BG appears to be stable off medications. Check hemoglobin A1c. Hemoglobin remained stable s/p 2 units PRBCs. No evidence of active bleeding, no hematochezia or hematemesis. Follow- up Hemoccult of stool. Follow-up iron studies--iron, TIBC, ferritin, B12, folate and reticulocyte count. History Interval history: No new issues overnight Hospitalist Physical - Constitutional Vitals: Temp Pulse Resp BP Pulse Ox 98.0 F 83 18 146/76 99 09/16/21 04:29 09/16/21 04:29 09/16/21 04:29 09/16/21 04:29 09/16/21 08:04 General appearance: Present: mild distress - EENT Eyes: Present: PERRL, EOM intact ENT: hearing intact, clear oral mucosa, dentition normal - Neck Neck: Present: supple, normal ROM - Respiratory Respiratory effort: normal Respiratory: bilateral: CTA - Cardiovascular Rhythm: regular Heart Sounds: Present: S1 & S2. Absent: gallop, rub - Extremities Extremities: no ischemia, No edema, Full ROM - Abdominal General gastrointestinal: soft, non-tender, non-distended, normal bowel sounds - Integumentary Integumentary: Present: clear, warm, dry - Neurologic Neurologic: CNII-XII intact, moves all extremities HEART Score - HEART Score Troponin: Troponin T < 0.010 ng/mL (0.00-0.029) 09/14/21 14:20 Results - Labs CBC & Chem 7: 09/16/21 05:53 09/16/21 05:53 Labs: Laboratory Last Values WBC 4.7 K/mm3 (4.5-11.0) 09/16/21 05:53 RBC 3.13 M/mm3 (3.65-5.03) L 09/16/21 05:53 Hgb 9.3 gm/dl (10.1-14.3) L 09/16/21 05:53 Hct 27.8 % (30.3-42.9) L 09/16/21 05:53 MCV 89 fl (79-97) 09/16/21 05:53 MCH 30 pg (28-32) 09/16/21 05:53 MCHC 34 % (30-34) 09/16/21 05:53 RDW 15.3 % (13.2-15.2) H 09/16/21 05:53 Plt Count 193 K/mm3 (140-440) 09/16/21 05:53 Lymph % (Auto) 21.0 % (13.4-35.0) 09/16/21 05:53 [place] % (Auto) 4.7 % (0.0-7.3) 09/16/21 05:53 Eos % (Auto) 0.3 % (0.0-4.3) 09/16/21 05:53 Baso % (Auto) 0.4 % (0.0-1.8) 09/16/21 05:53 Lymph # (Auto) 1.0 K/mm3 (1.2-5.4) L 09/16/21 05:53 [place] # (Auto) 0.2 K/mm3 (0.0-0.8) 09/16/21 05:53 Eos # (Auto) 0.0 K/mm3 (0.0-0.4) 09/16/21 05:53 Baso # (Auto) 0.0 K/mm3 (0.0-0.1) 09/16/21 05:53 Seg Neutrophils % 73.6 % (40.0-70.0) H 09/16/21 05:53 Seg Neutrophils # 3.4 K/mm3 (1.8-7.7) 09/16/21 05:53 PT 16.7 Sec. (12.2-14.9) H 09/14/21 15:23 INR 1.21 (0.87-1.13) H 09/14/21 15:23 APTT 53.6 Sec. (24.2-36.6) H 09/14/21 15:23 Sodium 138 mmol/L (137-145) 09/16/21 05:53 Potassium 3.8 mmol/L (3.6-5.0) D 09/16/21 05:53 Chloride 101.7 mmol/L (98-107) 09/16/21 05:53 Carbon Dioxide 21 mmol/L (22-30) L 09/16/21 05:53 Anion Gap 19 mmol/L 09/16/21 05:53 BUN 46 mg/dL (7-17) H 09/16/21 05:53 Creatinine 2.5 mg/dL (0.6-1.2) H 09/16/21 05:53 Estimated GFR 23 ml/min 09/16/21 05:53 BUN/Creatinine Ratio 18 % 09/16/21 05:53 Glucose 130 mg/dL (65-100) H 09/16/21 05:53 POC Glucose 105 mg/dL (70-105) 09/14/21 15:51 Calcium 8.6 mg/dL (8.4-10.2) 09/16/21 05:53 Phosphorus 5.90 mg/dL (2.5-4.5) H 09/16/21 05:53 Magnesium 1.60 mg/dL (1.7-2.3) L 09/16/21 05:53 Total Bilirubin 0.30 mg/dL (0.1-1.2) 09/16/21 05:53 AST 13 units/L (5-40) 09/16/21 05:53 ALT 9 units/L (7-56) 09/16/21 05:53 Alkaline Phosphatase 67 units/L (35-129) 09/16/21 05:53 Troponin T < 0.010 ng/mL (0.00-0.029) 09/14/21 14:20 Total Protein 7.1 g/dL (6.3-8.2) 09/16/21 05:53 Albumin 2.9 g/dL (3.9-5) L 09/16/21 05:53 Albumin/Globulin Ratio 0.7 % 09/16/21 05:53 Blood Type A POSITIVE 09/14/21 15:23 Antibody Screen Negative 09/14/21 15:23 Crossmatch See Detail 09/14/21 15:23 [place]berg/IV: Voiding Method Toilet Active Medications - Current Medications Current Medications: Generic Name Dose Route Start Last Admin Trade Name Freq PRN Reason Stop Dose Admin Acetaminophen 650 mg 09/14/21 15:54 Acetaminophen 325 Mg Tab PO Q4H PRN Pain MILD(1-3)/Fever >100.5/HOLGUIN Albuterol 2.5 mg 09/14/21 15:54 Albuterol 2.5 Mg/3 Ml Nebu IH Q4HRT PRN Shortness Of Breath Hydromorphone HCl 0.5 mg 09/14/21 15:54 Hydromorphone 1 Mg/1 Ml Inj IV Q13H PRN Pain , Severe (7-10) Sodium Chloride 1,000 mls @ 42 mls/hr 09/14/21 16:00 09/15/21 14:29 Nacl 0.45% 1000 Ml IV 42 mls/hr DIRECT BRIAN Administration Ondansetron HCl 4 mg 09/14/21 15:54 Ondansetron 4 Mg/2 Ml Inj IV Q8H PRN Nausea And Vomiting Oxycodone/Acetaminophen 1 tab 09/14/21 15:54 Oxycodone /Acetaminophen 5-325mg Tab PO Q16H PRN Pain, Moderate (4-6) Sodium Chloride 10 ml 09/14/21 22:00 09/15/21 22:29 Sodium Chloride 0.9% 10 Ml Flush Syringe IV Not Given BID BRIAN Sodium Chloride 10 ml 09/14/21 15:54 Sodium Chloride 0.9% 10 Ml Flush Syringe IV PRN PRN LINE FLUSH
[2021-09-16 10:59] LABS: Bacteria,Urine 1+ /HPF (Negative); Bilirubin,Urine NEG (Negative); Blood,Urine MOD (Negative); Color,Urine Yellow (Yellow); Urobilinogen,Urine < 2.0 mg/dL (<2.0)
[2021-09-16 11:05] LABS: Creatinine,Urine 100.3 mg/dL (0.1-20.0); Protein/Creatinine Ratio,Urine 1.46
[2021-09-16 11:23] LABS: Iron 27 ug/dL (37-170); Total Iron Binding Capacity 130 mcg/dL (250-450)
--- NOTE | 2021-09-16 12:31 | Progress Note ---
Assessment and Plan 1. Acute kidney injury: Vasomotor BROCK superimposed on CKD 2/2 volume depletion. Renal US showed echogenic kidneys. Baseline creatinine 1.8 - 2. Continue IV fluids. Monitor renal function. Creatinine level is improving. Avoid nephrotoxic agents. Meds dosage based on GFR. 2. FEN: Hyperkalemia, improved, monitor. Hyperchloremic Metabolic acidosis, monitor. Monitor lytes and volume status. 3. Symptomatic anemia, POA: S/p PRBC. Monitor H/H. 4. Syncope: Carotid doppler negative. TTE pending. Orthostatic VS. 5. DM-2: Accuchecks. 6. Hypertension: Monitor BP. Subjective: Patient was seen and examined at the bedside. Doing ok. Examination: General appearance: well-developed, appears stated age, no distress HEENT: atraumatic, pupils equal Neck: trachea midline Respiratory: ctab Heart: S1S2, regular, no murmur Abdomen: soft, bowel sounds heard, NT Integumentary: no obvious rash Neurologic: AO, able to move extremities Ext: no edema noted Subjective Date of service: 09/16/21 Objective - Vital Signs Vital signs: Vital Signs - 12hr 09/16/21 09/16/21 09/16/21 04:29 08:04 10:52 Temperature 98.0 F 98.0 F Pulse Rate 83 94 H Respiratory 18 18 Rate Blood Pressure 146/76 169/80 O2 Sat by Pulse 99 99 98 Oximetry - Lab 09/16/21 05:53 09/16/21 05:53 Most recent lab results Calcium 8.6 mg/dL (8.4-10.2) 09/16/21 05:53 Phosphorus 5.90 mg/dL (2.5-4.5) H 09/16/21 05:53 Magnesium 1.60 mg/dL (1.7-2.3) L 09/16/21 05:53 Urine Creatinine 100.3 mg/dL (0.1-20.0) H 09/16/21 10:19 Urine Sodium 67 mmol/L 09/16/21 10:19 Urine Total Protein 146 mg/dL (5-11.8) H 09/16/21 10:19 Medications & Allergies - Medications Allergies/Adverse Reactions: Allergies No Known Allergies Allergy (Unverified 05/23/13 14:39) Home Medications: Home Medications Medication Instructions Recorded Confirmed Last Taken Type Aspirin [Adult Aspirin] 81 mg PO DAILY 09/15/21 09/15/21 Unknown History Ezetimibe [Zetia] 10 mg PO DAILY 09/15/21 09/15/21 Unknown History Ferrous Sulfate [Iron 325 MG] 325 mg PO BID 09/15/21 09/15/21 Unknown History Gabapentin 100 mg PO BID PRN 09/15/21 09/15/21 Unknown History Metoprolol SUCCINATE ER TAB 100 mg PO DAILY 09/15/21 09/15/21 Unknown History Mirtazapine 7.5 mg PO QHS 09/15/21 09/15/21 Unknown History NIFEdipine [Nifedipine] 60 mg PO BID 09/15/21 09/15/21 Unknown History hydrALAZINE [Apresoline TAB] 100 mg PO TID 09/15/21 09/15/21 Unknown History lisinopriL [Lisinopril] 10 mg PO DAILY 09/15/21 09/15/21 Unknown History Active Medications: Generic Name Dose Route Start Last Admin Trade Name Roblesq PRN Reason Stop Dose Admin Acetaminophen 650 mg 09/14/21 15:54 Acetaminophen 325 Mg Tab PO Q4H PRN Pain MILD(1-3)/Fever >100.5/HOLGUIN Albuterol 2.5 mg 09/14/21 15:54 Albuterol 2.5 Mg/3 Ml Nebu IH Q4HRT PRN Shortness Of Breath Hydromorphone HCl 0.5 mg 09/14/21 15:54 Hydromorphone 1 Mg/1 Ml Inj IV Q13H PRN Pain , Severe (7-10) Sodium Chloride 1,000 mls @ 42 mls/hr 09/14/21 16:00 09/15/21 14:29 Nacl 0.45% 1000 Ml IV 42 mls/hr DIRECT BRIAN Administration Ondansetron HCl 4 mg 09/14/21 15:54 Ondansetron 4 Mg/2 Ml Inj IV Q8H PRN Nausea And Vomiting Oxycodone/Acetaminophen 1 tab 09/14/21 15:54 Oxycodone /Acetaminophen 5-325mg Tab PO Q16H PRN Pain, Moderate (4-6) Sodium Chloride 10 ml 09/14/21 22:00 09/16/21 10:15 Sodium Chloride 0.9% 10 Ml Flush Syringe IV 10 ml BID BRIAN Administration Sodium Chloride 10 ml 09/14/21 15:54 Sodium Chloride 0.9% 10 Ml Flush Syringe IV PRN PRN LINE FLUSH
--- NOTE | 2021-09-16 13:31 | Electrocardiograph Report ---
[facility] Test Date: 2021-09-14 Test Time: 13:16:08 Pat Name: JESSIE DONOHUE Department: Room: A381 Gender: F [employer]: KAREN : 1950 Requested By: ED DOC Order Number: [id number] Reading MD: Aylin Villatoro Measurements Intervals [place] Rate: 97 P: 79 [place]: 129 QRS: 55 QRSD: 58 T: 69 QT: 300 QTc: 381 Interpretive Statements Sinus rhythm Probable left atrial enlargement No previous ECG available for comparison Electronically Signed On 09-16-2021 13:30:46 EDT by Aylin Villatoro
--- NOTE | 2021-09-16 13:52 | Vascular Lab Report ---
DUPLEX DOPPLER ULTRASOUND CAROTID, BILATERAL INDICATION / CLINICAL INFORMATION: syncope. COMPARISON: None available. FINDINGS: RIGHT CAROTID: - PLAQUE ESTIMATE (%): < 50% - CCA velocity: 86 cm/sec. - ICA peak systolic velocity: 94 cm/sec. - ICA/CCA PSV Ratio: 1.1 Right Vertebral Artery: Antegrade flow. LEFT CAROTID: - PLAQUE ESTIMATE: < 50% - CCA velocity: 108 cm/sec. - ICA peak systolic velocity: 114 cm/sec. - ICA/CCA PSV Ratio: 1.1 Left Vertebral Artery: Antegrade flow. IMPRESSION: 1. Right Internal Carotid Artery: Less than 50% diameter stenosis. 2. Left Internal Carotid Artery: Less than 50% diameter stenosis. 3. Mild plaque in bilateral carotid bifurcations and carotid bulbs. Velocity criteria are extrapolated from diameter data as defined by the Society of Radiologists in Ul trasound Consensus Conference, Radiology 2003; 229;340-346. NO STENOSIS (NORMAL) * Plaque = none; ICA PSV < 125 cm/sec; ICA/CCA PSV Ratio < 2.0 <50% STENOSIS * Plaque < 50%; ICA PSV < 125 cm/sec; ICA/CCA PSV Ratio < 2.0 50-69% STENOSIS * Plaque > 50%; ICA PSV = 125-230 cm/sec; ICA/CCA PSV Ratio = 2.0-4.0 >70% BUT <100% STENOSIS * Plaque > 50%; ICA PSV > 230 cm/sec; ICA/CCA PSV Ratio > 4.0 NEAR OCCLUSION * Plaque = visible lumen; ICA PSV = high/low/none; ICA/CCA PSV Ratio = variable TOTAL OCCLUSION * Plaque = no lumen; ICA PSV = none; ICA/CCA PSV Ratio = N/A Signer Name: Beny Dickson MD Signed: 09/16/2021 1:48 PM Workstation Name: [employer]
[2021-09-17 05:20] VITALS: BP 179/75
--- NOTE | 2021-09-17 09:15 | Progress Note ---
Assessment and Plan 1. Acute kidney injury: Vasomotor BROCK superimposed on CKD 2/2 volume depletion. Renal US showed echogenic kidneys. Baseline creatinine 1.8 - 2. Encourage PO fluids. Monitor renal function. Creatinine level is improving. Avoid nephrotoxic agents. Meds dosage based on GFR. 2. FEN: Hyperkalemia, improved, monitor. Hyperchloremic Metabolic acidosis, monitor. Monitor lytes and volume status. 3. Symptomatic anemia, POA: S/p PRBC. Monitor H/H. 4. Syncope: Carotid doppler negative. TTE normal EF, mild DD. 5. DM-2: Accuchecks. 6. Hypertension: Monitor BP. F/u in 1-2 weeks. Subjective: Patient was seen and examined at the bedside. Doing better. Examination: General appearance: well-developed, appears stated age, no distress HEENT: atraumatic, pupils equal Neck: trachea midline Respiratory: ctab Heart: S1S2, regular, no murmur Abdomen: soft, bowel sounds heard, NT Integumentary: no obvious rash Neurologic: AO, able to move extremities Ext: no edema noted Subjective Date of service: 09/17/21 Objective - Vital Signs Vital signs: Vital Signs - 12hr 09/16/21 09/16/21 09/17/21 22:00 22:09 04:23 Temperature 97.7 F 97.9 F Pulse Rate 73 66 Respiratory 20 18 Rate Blood Pressure 148/68 179/75 O2 Sat by Pulse 98 100 100 Oximetry - Lab 09/16/21 05:53 09/17/21 09:16 Most recent lab results Calcium 8.6 mg/dL (8.4-10.2) 09/16/21 05:53 Phosphorus 5.90 mg/dL (2.5-4.5) H 09/16/21 05:53 Magnesium 1.60 mg/dL (1.7-2.3) L 09/16/21 05:53 Urine Creatinine 100.3 mg/dL (0.1-20.0) H 09/16/21 10:19 Urine Sodium 67 mmol/L 09/16/21 10:19 Urine Total Protein 146 mg/dL (5-11.8) H 09/16/21 10:19 Medications & Allergies - Medications Allergies/Adverse Reactions: Allergies No Known Allergies Allergy (Unverified 05/23/13 14:39) Home Medications: Home Medications Medication Instructions Recorded Confirmed Last Taken Type Aspirin [Adult Aspirin] 81 mg PO DAILY 09/15/21 09/15/21 Unknown History Ezetimibe [Zetia] 10 mg PO DAILY 09/15/21 09/15/21 Unknown History Gabapentin 100 mg PO BID PRN 09/15/21 09/15/21 Unknown History Mirtazapine 7.5 mg PO QHS 09/15/21 09/15/21 Unknown History NIFEdipine [Nifedipine] 60 mg PO BID 09/15/21 09/15/21 Unknown History hydrALAZINE [Apresoline TAB] 100 mg PO TID 09/15/21 09/15/21 Unknown History Ferrous Sulfate [Iron 325 MG] 325 mg PO BID #60 tab 09/17/21 Unknown Rx Active Medications: Generic Name Dose Route Start Last Admin Trade Name Freq PRN Reason Stop Dose Admin Acetaminophen 650 mg 09/14/21 15:54 Acetaminophen 325 Mg Tab PO Q4H PRN Pain MILD(1-3)/Fever >100.5/HOLGUIN Albuterol 2.5 mg 09/14/21 15:54 Albuterol 2.5 Mg/3 Ml Nebu IH Q4HRT PRN Shortness Of Breath Hydromorphone HCl 0.5 mg 09/14/21 15:54 Hydromorphone 1 Mg/1 Ml Inj IV Q13H PRN Pain , Severe (7-10) Sodium Chloride 1,000 mls @ 42 mls/hr 09/14/21 16:00 09/15/21 14:29 Nacl 0.45% 1000 Ml IV 42 mls/hr DIRECT BRIAN Administration Magnesium Sulfate 1 gm/ Sodium 52 mls @ 52 mls/hr 09/17/21 10:00 Chloride IV 09/17/21 10:59 ONCE ONE Ondansetron HCl 4 mg 09/14/21 15:54 Ondansetron 4 Mg/2 Ml Inj IV Q8H PRN Nausea And Vomiting Oxycodone/Acetaminophen 1 tab 09/14/21 15:54 Oxycodone /Acetaminophen 5-325mg Tab PO Q16H PRN Pain, Moderate (4-6) Sodium Chloride 10 ml 09/14/21 22:00 09/16/21 22:03 Sodium Chloride 0.9% 10 Ml Flush Syringe IV 10 ml BID BRIAN Administration Sodium Chloride 10 ml 09/14/21 15:54 Sodium Chloride 0.9% 10 Ml Flush Syringe IV PRN PRN LINE FLUSH
[2021-09-17 09:49] LABS: Calcium 8.4 mg/dL (8.4-10.2)
[2021-09-17] MEDS ORDERED: MAGNESIUM SULFATE 1 GM in SODIUM CHLORIDE 0.9% 50 ML IV ONE (10:00)
--- NOTE | 2021-09-17 11:02 | Discharge Summary ---
Providers - Providers Date of Admission: 09/14/21 18:16 Attending physician: FLORENCE ARVIZU MD 09/14/21 15:43 Consult to Physician [CONS] Urgent Comment: Consulting Provider: KRISTIE YEUNG Physician Instructions: Reason For Exam: renal insuf, hyperkalemia Primary care physician: [employer] Hospitalization Reason for admission: syncope Condition: Stable Hospital course: 71 YO Female with Vascular Dementia, Cerebral Atherosclerosis, HTN, DM, CKD, Nicotine Dependence presents to ED for evaluation of generalized weakness over the past 1 week with persistent symptoms over the same timeframe. Patient also states that she experienced a sudden onset of dizziness while ambulating in her home the night [employer] and felt unable to walk and sat down and subsequently passed out. Patient now report persistent weakness and dizziness. Patient transported to [facility] via private vehicle for further care and evaluation. All lab and imagi ng studies reviewed. Patient found to have symptomatic anemia resulting in generalized weakness and loss of consciousness, BROCK with ATN, metabolic acidosis. Patient admitted to medical floor due to increased risk of worsening symptoms. Nephrology team consulted in ED. Symptomatic anemia- Iron def Acute kidney injury secondary to vasomotor nephropathy Hyperkalemia Autonomic Dysfunction Vascular dementia Cerebral atherosclerosis Hypertension Diabetes mellitus type 2 doubt. Likely prediabetic with episodic hyperglycemia- A1C is 5.3 Tobacco abuse 09/15/2021. Patient with a baseline creatinine of 1.2 in August 2017. Patient's hemoglobin has improved to 9.8 after 2 units of PRBCs. Continue to monitor H&H. No evidence of active bleeding, no hematochezia or hematemesis. Follow-up He moccult of stool. Follow-up iron studies. Follow-up spot urine, urinalysis and renal ultrasound. 09/16/2021. Renal ultrasound reveals medical renal disease but no hydronephrosis. Creatinine has improved to 2.5. Hyperkalemia has resolved. Check carotid ultrasound and echocardiogram for syncope. BG appears to be stable off medications. Check hemoglobin A1c. Hemoglobin remained stable s/p 2 units PRBCs. No evidence of active bleeding, no hematochezia or hematemesis. Follow- up Hemoccult of stool. Follow-up iron studies--iron, TIBC, ferritin, B12, folate and reticulocyte count. 09/17: Discussed with Nephrology agree with discharge and patient to follow in the office. I have discussed extensively with the patient about home health and she declines. echo shows preserved EF, HGB A1C is 5.3, patient does not meet DM diagnosis based on AIC. Outpatient hematology and GI eval. extensive counseling for 15 minutes given about tobacco cessation patient verbalized understanding. Disposition: 01 HOME / SELF CARE / HOMELESS Final Discharge Diagnosis (Prints w/discharge instructions): Symptomatic anemia- Iron def. Acute kidney injury secondary to vasomotor nephropathy. Hyperkalemia. Autonomic Dysfunction Time spent for discharge: 35 mins Core Measure Documentation - Palliative Care Palliative Care/ Comfort Measures: Not Applicable - Core Measures Any of the following diagnoses?: none Exam - Physical Exam Narrative exam: VITAL SIGNS: Reviewed. GENERAL: The patient appears normally developed, Vital signs as documented. HEAD: No signs of head trauma. EYES: Pupils are equal. Extraocular motions intact. EARS: Hearing grossly intact. MOUTH: Oropharynx is normal. NECK: No adenopathy, no JVD. CHEST: Chest with clear breath sounds bilaterally. No wheezes, rales, or rhonchi. CARDIAC: Regular rate and rhythm. S1 and S2, without murmurs, gallops, or rubs. VASCULAR: No Edema. Peripheral pulses normal and equal in all extremities. ABDOMEN: Soft, non tender and non distended. No rebound or guarding, and no masses palpated. Bowel Sounds normal. MUSCULOSKELETAL: Good range of motion of all major joints. Extremities without clubbing, cyanosis or edema. NEUROLOGIC EXAM: Alert and oriented x 3 No focal sensory or strength deficits. Speech normal. Follows commands. PSYCHIATRIC: Mood normal. SKIN: detail exam as documented in skin assessment - Constitutional Vitals: Temp Pulse Resp BP Pulse Ox 97.9 F 66 18 179/75 95 09/17/21 04:23 09/17/21 04:23 09/17/21 04:23 09/17/21 04:23 09/17/21 10:00 Plan Activity: advance as tolerated, fall precautions Diet: low fat Special Instructions: record daily weights, record daily BP diary, record blood sugar diary, smoking cessation Plan of Treatment: no Aspirin until seen by GI doctor Stop Diabetes medicine, keep checking blood sugar and give Blood glucose diary to your doctor to review Follow up with: PRIMARY RENE, [Primary Care Provider] - 7 Days PAPO GARNICA MD [Staff Physician] - 7 Days SCOTT GAMINO DO [Staff Physician] - 7 Days KRISTIE YEUNG MD [Staff Physician] - 7 Days Prescriptions: Ferrous Sulfate [Iron 325 MG] 325 mg PO BID #60 tab
[2021-09-17] MEDS ORDERED: NIFEDIPINE 20 MG PO SCH (11:15)
[2021-09-17] MEDS ORDERED: EZETIMIBE 10 MG TAB PO SCH (12:00)
[2021-09-17] MEDS ORDERED: NIFEdipine XL 60 MG TAB PO SCH (12:00)
[2021-09-17] MEDS ORDERED: hydrALAZINE 100 MG TAB PO SCH (14:00)
== END 2021-09-17 14:15 | disposition home or self-care (01) | DRG 811 ==
LOC: ED 12:54 → 3A 18:16
PROVIDERS: ADMIT Internal Medicine; ATTEND Internal Medicine
PROC: 30233N1 Transfusion of Nonautologous Red Blood Cells into Peripheral Vein, Percutaneous Approach (ICD-10-PCS; principal; 2021-09-14)
DX: D50.9 Iron deficiency anemia, unspecified (principal); N17.0 Acute kidney failure with tubular necrosis; J81.1 Chronic pulmonary edema; E87.2 Acidosis; G90.8 Other disorders of autonomic nervous system; F17.200 Nicotine dependence, unspecified, uncomplicated; Z79.899 Other long term (current) drug therapy; E87.5 Hyperkalemia; I12.9 Hypertensive chronic kidney disease with stage 1 through stage 4 chronic kidney disease, or unspecified chronic kidney disease; N18.9 Chronic kidney disease, unspecified; F01.50 Vascular dementia, unspecified severity, without behavioral disturbance, psychotic disturbance, mood disturbance, and anxiety; I67.2 Cerebral atherosclerosis; Z83.3 Family history of diabetes mellitus; Z82.49 Family history of ischemic heart disease and other diseases of the circulatory system; E11.22 Type 2 diabetes mellitus with diabetic chronic kidney disease; Z71.6 Tobacco abuse counseling; R62.7 Adult failure to thrive; Z68.22 Body mass index [BMI] 22.0-22.9, adult
CPT/HCPCS: 36415; 71045; 76770; 80048; 80053; 81001; 82270; 82271; 82570; 82607; 82728; 82747; 82962; 83010; 83036; 83550; 83735; 84100; 84156; 84300; 84484; 84520; 85014; 85018; 85025; 85045; 85610; 85730; 86850; 86900; 86901; 86920; 87086; 93005; 93306; 93880; 94640; 94644; 94760; 96374; 96375; 99285; G0378; J3490; Q9967; C8929; J0610; J1815; J1940; J3475; J7030; J7040; P9016